=== PATIENT | male | born 2000 | race Caucasian/White ===

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

== ENCOUNTER 2022-01-17 18:20 | Emergency (ER) | payer OTHER ==
[2022-01-17 18:35] VITALS: BP 127/73; PULSE 98; TEMP 98.1; BMI 24.3
[2022-01-17] MEDS ORDERED: ACETAMINOPHEN 325 MG TABLET (FP) PO ONE (19:02)
[2022-01-17] MEDS ORDERED: ACETAMINOPHEN 325 MG TABLET (FP) ONE (19:43)
[2022-01-17 20:01] LABS: BASO % 0.6 % (0-2.0); EOS % 1.3 % (0-4.5); HEMATOCRIT 42.9 % (35.4-49); HEMOGLOBIN 14.7 GM/dL (11.7-16.9); LYMPH % 25.5 % (8-40); MCH 29.7 pg (25.7-33.7); MCHC 34.4 g/dl (32.0-35.9); MEAN CELL VOLUME 86.3 fl (80-96); MEAN PLT VOLUME 7.4 fl (7.5-11.1); NEUT % 64.6 % (42.8-82.8); PLATELET COUNT 263 10^3/uL (134-434); RBC 4.96 M/mm3 (4.00-5.60); RDW 13.3 % (11.9-15.9); WHITE BLOOD COUNT 8.6 K/mm3 (4.0-10.0)
[2022-01-17 20:12] LABS: PH,URINE 5.5 (5.0-8.0); URINE APPEARANCE CLEAR; URINE BILIRUBIN NEGATIVE (NEGATIVE); URINE COLOR YELLOW; URINE GLUCOSE (UA) NEGATIVE (NEGATIVE); URINE KETONE NEGATIVE (NEGATIVE); URINE LEUK ESTERASE NEGATIVE (NEGATIVE); URINE NITRITE NEGATIVE (NEGATIVE); URINE PROTEIN NEGATIVE (NEGATIVE); URINE UROBILINOGEN 0.2 mg/dL (0.2-1.0)
[2022-01-17 20:22] LABS: METHADONE, UR NEGATIVE (NEGATIVE); PHENCYCLIDINE,URINE NEGATIVE (NEGATIVE); URINE BENZODIAZEPINES NEGATIVE (NEGATIVE)
[2022-01-17 20:23] LABS: BLOOD UREA NITROGEN 8.6 mg/dL (7-18); CALCIUM 8.2 mg/dL (8.5-10.1); COCAINE, UR NEGATIVE (NEGATIVE); URINE BARBITURATES NEGATIVE (NEGATIVE)
[2022-01-17 20:24] LABS: ALBUMIN 4.2 g/dl (3.4-5.0)
[2022-01-17 20:26] LABS: OPIATES, URI NEGATIVE (NEGATIVE); URINE AMPHETAMINES NEGATIVE (NEGATIVE)
[2022-01-17 20:27] LABS: CREATININE 0.8 mg/dL (0.55-1.3)
[2022-01-17 20:29] LABS: TOT PROT 7.2 g/dl (6.4-8.2)
[2022-01-17 20:35] LABS: BILIRUBIN,TOTAL 0.3 mg/dL (0.2-1)
== END 2022-01-17 21:25 | disposition home or self-care (01) ==
LOC: JER 18:20
DX: G43.119 Migraine with aura, intractable, without status migrainosus (principal)
CPT/HCPCS: 36415; 80053; 80307; 81003; 85025; 87086; 99283-25

== ENCOUNTER 2022-07-29 10:08 | Emergency (ER) | payer OTHER ==
[2022-07-29 10:24] VITALS: BMI 25.1
[2022-07-29] MEDS ORDERED: SODIUM CHLORIDE 0.9% 500 ML INFUS.BAG IV ONE (10:41)
[2022-07-29] MEDS ORDERED: ACETAMINOPHEN 1000 MG/100 ML BAG IVPB ONE (10:42)
[2022-07-29] MEDS ORDERED: ACETAMINOPHEN INJECTION 100 ML IVPB ONE (11:03)
[2022-07-29 11:04] LABS: VENOUS BASE EXCESS -7.7 mmol/L (-2-2); VENOUS O2 SATURATION 67.9 % (70-80); VENOUS PCO2 34.6 mmHg (38-52); VENOUS PH 7.317 (7.310-7.410)
[2022-07-29 11:10] LABS: HEMATOCRIT 48.8 % (35.4-49); HEMOGLOBIN 16.8 GM/dL (11.7-16.9); MCH 30.5 pg (25.7-33.7); MCHC 34.4 g/dl (32.0-35.9); MEAN CELL VOLUME 88.4 fl (80-96); MEAN PLT VOLUME 7.3 fl (7.5-11.1); PLATELET COUNT 304 10^3/uL (134-434); RBC 5.52 M/mm3 (4.00-5.60); RDW 13.3 % (11.9-15.9); WHITE BLOOD COUNT 10.6 K/mm3 (4.0-10.0)
[2022-07-29] MEDS ORDERED: ONDANSETRON 4 MG/2 ML VIAL IVPUSH ONE (11:22)
[2022-07-29 11:25] LABS: BLOOD UREA NITROGEN 8.9 mg/dL (7-18); CALCIUM 9.6 mg/dL (8.5-10.1)
[2022-07-29 11:26] LABS: ALBUMIN 4.8 g/dl (3.4-5.0)
[2022-07-29] MEDS ORDERED: ONDANSETRON 4 MG/2 ML VIAL ONE (11:27)
[2022-07-29 11:29] LABS: CREATININE 1.2 mg/dL (0.55-1.3)
[2022-07-29 11:30] LABS: BILIRUBIN,TOTAL 0.4 mg/dL (0.2-1); TOT PROT 8.1 g/dl (6.4-8.2)
[2022-07-29 11:33] LABS: LACTIC ACID 10.4 mmol/L (0.4-2.0)
[2022-07-29 11:52] LABS: ANISOCYTOSIS 2+; MACROCYTOSIS 0
[2022-07-29 13:22] LABS: EPI CELLS 3 /uL (0-25.1); HYALINE CASTS 0 /uL (0-3.1); PH,URINE 5.5 (5.0-8.0); URINE APPEARANCE CLOUDY; URINE BACTERIA 8 /uL (0-1359); URINE BILIRUBIN NEGATIVE (NEGATIVE); URINE COLOR YELLOW; URINE GLUCOSE (UA) NEGATIVE (NEGATIVE); URINE KETONE NEGATIVE (NEGATIVE); URINE LEUK ESTERASE NEGATIVE (NEGATIVE); URINE NITRITE NEGATIVE (NEGATIVE); URINE PROTEIN 1+ (NEGATIVE); URINE RBC 13 /uL (0-23.9); URINE UROBILINOGEN 0.2 mg/dL (0.2-1.0); URINE WBC 8 /uL (0-25.8)
[2022-07-29 14:54] VITALS: TEMP 99.4
[2022-07-29] MEDS ORDERED: METOCLOPRAMIDE HCL INJECTION 10 MG/2 ML VIAL IVPUSH ONE (14:58)
[2022-07-29] MEDS ORDERED: METOCLOPRAMIDE HCL INJECTION 10 MG/2 ML VIAL ONE (15:26)
[2022-07-29 16:29] VITALS: BP 103/65; PULSE 103; RESP 19
== END 2022-07-29 16:29 | disposition home or self-care (01) ==
LOC: JER 10:08
PROC: 3E0333Z Introduction of Anti-inflammatory into Peripheral Vein, Percutaneous Approach (ICD-10-PCS; principal; 2022-07-29)
PROC: 3E033GC Introduction of Other Therapeutic Substance into Peripheral Vein, Percutaneous Approach (ICD-10-PCS; 2022-07-29)
PROC: 3E033GC Introduction of Other Therapeutic Substance into Peripheral Vein, Percutaneous Approach (ICD-10-PCS; 2022-07-29)
DX: G40.89 Other seizures (principal)
CPT/HCPCS: 0241U-QW; 36415; 70450-TC; 71045-TC-FY; 80053; 81003; 82803; 82962; 83605; 85025; 87040; 87086; 93005; 93010; 99285-25

== ENCOUNTER 2023-08-12 03:36 | Emergency (ER) | payer OTHER ==
[2023-08-12 04:06] VITALS: BMI 25.5
[2023-08-12] MEDS ORDERED: METOCLOPRAMIDE HCL INJECTION 10 MG/2 ML VIAL IM ONE (04:10)
[2023-08-12] MEDS ORDERED: ACETAMINOPHEN 325 MG TABLET (FP) PO ONE (04:10)
[2023-08-12] MEDS ORDERED: METOCLOPRAMIDE HCL INJECTION 10 MG/2 ML VIAL IVPUSH ONE (04:11)
[2023-08-12] MEDS ORDERED: METOCLOPRAMIDE HCL INJECTION 10 MG/2 ML VIAL ONE (04:21)
[2023-08-12] MEDS ORDERED: ACETAMINOPHEN 325 MG TABLET (FP) ONE (04:21)
[2023-08-12] MEDS ORDERED: IBUPROFEN 600 MG TABLET (FP) PO ONE ×2 (05:59→06:05)
[2023-08-12 06:12] VITALS: BP 100/50; PULSE 91; RESP 18; TEMP 97.8
== END 2023-08-12 06:52 | disposition home or self-care (01) ==
LOC: JER 03:36
PROC: 3E033GC Introduction of Other Therapeutic Substance into Peripheral Vein, Percutaneous Approach (ICD-10-PCS; principal; 2023-08-12)
DX: G40.89 Other seizures (principal); R51.9 Headache, unspecified; Z20.822 Contact with and (suspected) exposure to COVID-19
CPT/HCPCS: 0241U-QW; 70450-TC; 99284-25

== ENCOUNTER 2023-09-28 03:49 | Emergency (ER) | payer OTHER ==
[2023-09-28 04:00] VITALS: BMI 25.8
[2023-09-28] MEDS ORDERED: METOCLOPRAMIDE HCL INJECTION 10 MG/2 ML VIAL IVPUSH ONE (04:07)
[2023-09-28] MEDS ORDERED: ACETAMINOPHEN 1000 MG/100 ML BAG IVPB ONE (04:07)
[2023-09-28] MEDS ORDERED: METOCLOPRAMIDE HCL INJECTION 10 MG/2 ML VIAL ONE (04:27)
[2023-09-28] MEDS ORDERED: ACETAMINOPHEN INJECTION 100 ML IVPB ONE (04:27)
[2023-09-28 04:48] LABS: BASO % 0.4 % (0-2.0); HEMATOCRIT 47.4 % (35.4-49); HEMOGLOBIN 16.1 GM/dL (11.7-16.9); MCH 29.4 pg (25.7-33.7); MEAN CELL VOLUME 86.4 fl (80-96); MEAN PLT VOLUME 7.3 fl (7.5-11.1); MONO % 8.5 % (3.8-10.2); NEUT % 72.1 % (42.8-82.8); PLATELET COUNT 264 10^3/uL (134-434); RBC 5.49 M/mm3 (4.00-5.60); RDW 13.6 % (11.9-15.9); WHITE BLOOD COUNT 12.5 K/mm3 (4.0-10.0)
[2023-09-28 05:07] LABS: POTASSIUM 3.6 mmol/L (3.5-5.1)
[2023-09-28 05:09] LABS: BLOOD UREA NITROGEN 13.3 mg/dL (7-18); CALCIUM 8.2 mg/dL (8.5-10.1)
[2023-09-28 05:10] LABS: ALBUMIN 4.2 g/dl (3.4-5.0)
[2023-09-28 05:14] LABS: BILIRUBIN,TOTAL 0.3 mg/dL (0.2-1); TOT PROT 7.4 g/dl (6.4-8.2)
[2023-09-28] MEDS ORDERED: KETOROLAC TROMETHAMINE 15 MG/ML VIAL IVPUSH ONE (06:36)
[2023-09-28] MEDS ORDERED: MAGNESIUM SULF 50% (8.12 MEQ/2 ML-1 GM VIAL) IVPB ONE (06:38)
[2023-09-28] MEDS ORDERED: KETOROLAC TROMETHAMINE 15 MG/ML VIAL ONE (06:39)
[2023-09-28] MEDS ORDERED: MAGNESIUM SULFATE IN WATER 2 GM/50 ML IVPB IVPB ONE (07:11)
[2023-09-28] MEDS ORDERED: LACOSAMIDE 100 MG TABLET PO ONE (07:33)
[2023-09-28] MEDS ORDERED: carBAMazepine 200 MG TABLET PO ONE (07:33)
[2023-09-28] MEDS ORDERED: carBAMazepine 200 MG TABLET ONE ×2 (07:37→07:55)
[2023-09-28] MEDS ORDERED: LACOSAMIDE 50 MG TABLET PO ONE (07:37)
[2023-09-28] MEDS ORDERED: LACOSAMIDE 200 MG TABLET PO ONE (07:37)
[2023-09-28] MEDS ORDERED: carBAMazepine 100 MG TAB.CHEW PO ONE (07:51)
[2023-09-28 07:55] LABS: PH,URINE 5.5 (5.0-8.0); URINE APPEARANCE TURBID; URINE BILIRUBIN NEGATIVE (NEGATIVE); URINE COLOR YELLOW; URINE GLUCOSE (UA) NEGATIVE (NEGATIVE); URINE KETONE NEGATIVE (NEGATIVE); URINE LEUK ESTERASE NEGATIVE (NEGATIVE); URINE NITRITE NEGATIVE (NEGATIVE); URINE PROTEIN NEGATIVE (NEGATIVE); URINE UROBILINOGEN 0.2 mg/dL (0.2-1.0)
[2023-09-28 08:21] VITALS: BP 120/64; PULSE 75; RESP 17; TEMP 97.7
== END 2023-09-28 08:45 | disposition home or self-care (01) ==
LOC: JER 03:49
PROC: 3E033NZ Introduction of Analgesics, Hypnotics, Sedatives into Peripheral Vein, Percutaneous Approach (ICD-10-PCS; principal; 2023-09-28)
PROC: 3E0333Z Introduction of Anti-inflammatory into Peripheral Vein, Percutaneous Approach (ICD-10-PCS; 2023-09-28)
PROC: 3E033GC Introduction of Other Therapeutic Substance into Peripheral Vein, Percutaneous Approach (ICD-10-PCS; 2023-09-28)
PROC: 3E033GC Introduction of Other Therapeutic Substance into Peripheral Vein, Percutaneous Approach (ICD-10-PCS; 2023-09-28)
DX: G40.909 Epilepsy, unspecified, not intractable, without status epilepticus (principal); J18.9 Pneumonia, unspecified organism; R51.9 Headache, unspecified; Z20.822 Contact with and (suspected) exposure to COVID-19
CPT/HCPCS: 0241U-QW; 36415; 71045-TC-FY; 80053; 81003; 82550; 85025; 87086; 99284-25

== ENCOUNTER 2023-12-16 07:28 | Emergency (ER) | payer OTHER ==
[2023-12-16] MEDS ORDERED: ACETAMINOPHEN 325 MG TABLET (FP) PO ONE (08:18)
[2023-12-16 08:21] VITALS: BP 130/86; PULSE 87; RESP 18; TEMP 98.8; BMI 26.6
[2023-12-16] MEDS ORDERED: ACETAMINOPHEN 1000 MG/100 ML BAG IVPB ONE (08:29)
[2023-12-16] MEDS ORDERED: LACTATED RINGERS SOLUTION 1000 ML INFUS.BAG IV ONE (08:30)
== END 2023-12-16 08:45 | disposition home or self-care (01) ==
LOC: JER 07:28
DX: G40.909 Epilepsy, unspecified, not intractable, without status epilepticus (principal); G43.909 Migraine, unspecified, not intractable, without status migrainosus
CPT/HCPCS: 71045-TC-FY; 82962; 99283-25

== ENCOUNTER 2023-12-28 07:08 | Emergency (ER) | payer OTHER ==
[2023-12-28] MEDS ORDERED: OXcarbazepine 300 MG/5 ML 250 ML BULK BOTTLE PO ONE (07:37)
[2023-12-28] MEDS ORDERED: LACOSAMIDE 200 MG TABLET PO ONE (07:47)
[2023-12-28] MEDS ORDERED: ACETAMINOPHEN 325 MG TABLET (FP) ONE (08:07)
[2023-12-28] MEDS: LACOSAMIDE 100 MG TABLET PO ONE (08:11)
[2023-12-28] MEDS: ACETAMINOPHEN 325 MG TABLET (FP) PO ONE ×2 (08:11→08:52)
[2023-12-28] MEDS: OXcarbazepine 150 MG TABLET (UD) PO ONE (08:12)
[2023-12-28 08:25] VITALS: TEMP 98.8; BMI 26.6
[2023-12-28 09:02] VITALS: BP 101/60
[2023-12-28 09:03] VITALS: PULSE 72; RESP 14
== END 2023-12-28 09:15 | disposition home or self-care (01) ==
LOC: JER 07:08
DX: G40.909 Epilepsy, unspecified, not intractable, without status epilepticus (principal); R51.9 Headache, unspecified; Z20.822 Contact with and (suspected) exposure to COVID-19
CPT/HCPCS: 0241U-QW; 70450-TC; 82962; 93005; 93010; 99285-25